=== PATIENT | male | born 1995 | race Caucasian/White ===

== ENCOUNTER 2018-06-04 08:11 | Emergency (ER) | END 2018-06-04 11:32 | disposition home or self-care (01) ==

== ENCOUNTER 2018-06-13 18:25 | Emergency (ER) | END 2018-06-13 23:57 | disposition home or self-care (01) ==

== ENCOUNTER 2018-06-20 06:40 | Emergency (ER) | END 2018-06-20 11:01 | disposition home or self-care (01) ==

== ENCOUNTER 2018-06-25 20:11 | Emergency (ER) | END 2018-06-26 03:40 | disposition home or self-care (01) ==

== ENCOUNTER 2018-06-29 15:55 | Emergency (ER) | END 2018-06-29 17:30 | disposition home or self-care (01) ==

== ENCOUNTER 2018-07-04 17:56 | Emergency (ER) | END 2018-07-05 00:23 | disposition home or self-care (01) ==

== ENCOUNTER 2018-07-05 07:00 | Emergency (ER) | END 2018-07-05 10:34 | disposition home or self-care (01) ==

== ENCOUNTER 2018-07-13 23:15 | Emergency (ER) | END 2018-07-13 23:30 | disposition left against medical advice (07) ==

== ENCOUNTER 2018-07-15 06:41 | Emergency (ER) | END 2018-07-15 10:46 | disposition home or self-care (01) ==

== ENCOUNTER 2018-07-18 17:26 | Emergency (ER) | END 2018-07-18 19:20 | disposition home or self-care (01) ==

== ENCOUNTER 2018-08-04 17:20 | Emergency (ER) | END 2018-08-04 23:32 | disposition left against medical advice (07) ==

== ENCOUNTER 2018-08-25 09:51 | Emergency (ER) | END 2018-08-25 10:40 | disposition home or self-care (01) ==

== ENCOUNTER 2018-08-29 14:00 | Emergency (ER) | END 2018-08-29 17:20 | disposition home or self-care (01) ==

== ENCOUNTER 2018-09-29 09:18 | Emergency (ER) | END 2018-09-29 11:41 | disposition left against medical advice (07) ==

== ENCOUNTER 2018-12-27 18:39 | Emergency (ER) | payer MEDICAID ==
[~2018-12-27] VITALS: Ht 172.7 cm; Wt 65.7 kg
[~2018-12-27 18:39] MED LIST: ALPR0.5T PO; AZIT250T PO; CHLO25CA9 PO
[2018-12-27 18:50] VITALS: Ht 172.7 cm; Wt 65.7 kg
[2018-12-27] MEDS ORDERED: DOCU-144 PO (21:49)
[2018-12-27] MEDS ORDERED: HYDR30CR75 PR (21:50)
[2018-12-27 21:55] VITALS: BP 117/80; PULSE 62; RESP 14
--- NOTE | 2018-12-27 21:59 | ERD ---
ER Documentation Chief Complaint Chief Complaint blood in urine x 5 days; denies any pain on urination and abd HPI Patient is a 23-year-old male with a past medical history of alcohol abuse, who presents the ER for concerns of blood in his stools for the last 5 days. Please note inconsistency with triage note. Patient states blood is in his stools, not in his urine. Patient states when wiping he noticed his blood. Patient also states his noted specks of blood in his stools. Patient does admit to straining. Patient states his stools are often hard. Patient denies any fevers, chills, nausea, vomiting or abdominal pain. Patient denies any recent travel. Patient denies any recent antibiotic use. Patient states the last time he drank was 2 weeks ago. ROS All systems reviewed and are negative except as per history of present illness. Medications Home Meds Active Scripts Hydrocortisone Acetate* (Anusol-HC*) 30 Gm Cream.gm., 1 APPLIC IN BID, #1 TUB Prov:INGRID SCHNEIDER PA-C 12/27/18 Docusate Sodium* (Colace*) 100 Mg Capsule, 100 MG PO BID, #15 CAP Prov:INGRID SCHNEIDER PA-C 12/27/18 Chlordiazepoxide* (Chlordiazepoxide*) 25 Mg Capsule, 25 MG PO Q8 PRN for ANXIETY, #10 CAP Prov:ALEX MARSHALL MD 08/29/18 Chlordiazepoxide* (Chlordiazepoxide*) 25 Mg Capsule, 25 MG PO Q8 PRN for ANXIETY, #10 CAP Prov:WENDY WEAVER DO 07/18/18 Azithromycin* (Zithromax*) 250 Mg Tablet, 250 MG PO .AmarilisPACK DIRECTED, #6 TAB TAKE 500 MG (2 TABS) THE FIRST DAY THEN 250 MG (1 TAB) DAYS 2-5 Prov:WENDY WEAVER DO 07/18/18 Alprazolam* (Xanax*) 0.5 Mg Tab, 0.5 MG PO Q8H PRN for ANXIETY, #20 TAB Prov:TERESA WEAVERSTKATHRYNS Kevin DO 07/05/18 Allergies Allergies: Coded Allergies: No Known Allergy (Unverified , 07/18/18) PMhx/Soc Medical and Surgical Hx: pt denies Medical Hx, pt denies Surgical Hx History of Surgery: No Anesthesia Reaction: No Hx Neurological Disorder: No Hx Respiratory Disorders: No Hx Cardiac Disorders: No Hx Psychiatric Problems: No Hx Miscellaneous Medical Probl: Yes (ETOH ABUSE ) Hx Alcohol Use: Yes (binge drinker) Hx Substance Use: Yes (METH , MARIJUANA) Hx Tobacco Use: No Smoking Status: Never smoker FmHx Family History: No diabetes Physical Exam Vitals Vital Signs Date Temp Pulse Resp B/P (MAP) Pulse Ox O2 O2 Flow FiO2 Time Delivery Rate 12/27/18 98.4 79 16 140/82 99 18:50 (101) Physical Exam GENERAL: Well-developed, well-nourished female. Appears in no acute distress. HEAD: Normocephalic, atraumatic. EYES: Pupils are equally reactive bilaterally. EOMs grossly intact. No conjunctival erythema. ENT: Moist mucous membranes. No uvula deviation. No kissing tonsils. NECK: Supple. No meningismus. Normal range of motion of the neck. LUNG: Clear to auscultation bilaterally. No rhonchi, wheezing, rales or coarse breath sounds. HEART: Regular rate and rhythm. No murmurs, rubs or gallops. ABDOMEN: Soft, nontender, and nondistended. Positive bowel sounds in all four quadrants. No rebound tenderness, no guarding. (-) McBurney's point tenderness. No CVA tenderness. RECTAL: chrome tanner Arnold present during this portion of the exam. External skin tag noted. Anus is nontender to palpation. No surrounding erythema or warmth. No active bleeding or discharge. Normal anal sphincter tone. No gross blood noted on glove after rectal exam. EXTREMITIES: Equal pulses bilaterally. No peripheral clubbing, cyanosis or edema. No unilateral leg swelling. NEUROLOGIC: Alert and oriented. Moving all four extremities without any difficulty. Normal speech. Steady gait. SKIN: Normal color. Warm and dry. No rashes or lesions. Result Diagram: 12/27/18204912/27/182049 Results 24 hrs Laboratory Tests Test 12/27/18 20:25 12/27/18 20:50 Stool Occult Blood NEGATIVE White Blood Count 8.0 10^3/ul Red Blood Count 4.84 10^6/ul Hemoglobin 14.9 g/dl Hematocrit 42.4 % Mean Corpuscular Volume 87.6 fl Mean Corpuscular Hemoglobin 30.8 pg Mean Corpuscular Hemoglobin Concent 35.1 g/dl Red Cell Distribution Width 12.3 % Platelet Count 218 10^3/UL Mean Platelet Volume 8.6 fl Immature Granulocytes % 0.300 % Neutrophils % 60.7 % Lymphocytes % 27.9 % Monocytes % 7.6 % Eosinophils % 2.6 % Basophils % 0.9 % Nucleated Red Blood Cells % 0.0 /100WBC Immature Granulocytes # 0.020 10^3/ul Neutrophils # 4.9 10^3/ul Lymphocytes # 2.2 10^3/ul Monocytes # 0.6 10^3/ul Eosinophils # 0.2 10^3/ul Basophils # 0.1 10^3/ul Nucleated Red Blood Cells # 0.0 10^3/ul Sodium Level 141 mmol/L Potassium Level 4.0 mmol/L Chloride Level 100 mmol/L Carbon Dioxide Level 29 mmol/L Anion Gap 12 Blood Urea Nitrogen 9 mg/dl Creatinine 0.76 mg/dl Est Glomerular Filtrat Rate mL/min > 60 mL/min Glucose Level 92 mg/dl Calcium Level 9.5 mg/dl Total Bilirubin 0.3 mg/dl Direct Bilirubin 0.00 mg/dl Indirect Bilirubin 0.3 mg/dl Aspartate Amino Transf (AST/SGOT) 43 IU/L Alanine Aminotransferase (ALT/SGPT) 28 IU/L Alkaline Phosphatase 92 IU/L Total Protein 7.9 g/dl Albumin 4.6 g/dl Globulin 3.30 g/dl Albumin/Globulin Ratio 1.39 Lipase 61 U/L Procedures/MDM ED COURSE: The patient was stable throughout ED course. I kept the patient and/or family informed of laboratory and diagnostic imaging results throughout the ED course. MEDICAL DECISION MAKING: This is a 23-year-old male who presents the ER for concerns of rectal bleeding for the last 5 days. Patient reports specks of blood in his stool and specks of blood on wiping. Patient does admit to straining and hard stools. Patient denies any fevers or abdominal pain.. Vital signs were reviewed. Patient is afebrile. Rectal exam did reveal external hemorrhoids. No active bleeding. Blood work was obtained. CBC showed no evidence of systemic infection or severe anemia. CMP showed no evidence of electrolyte abnormalities, severe acidosis, alkalosis, renal failure, or liver disease. Occult blood test was negative. Based on physical exam findings, I do feel the patient has hemorrhoids which is contributing to his rectal bleeding. Patient was advised to avoid straining. Patient advised to increase fiber intake and H2O intake. Patient was advised to follow-up with a GI specialist on outpatient basis. Unable to rule out any internal hemorrhoids versus IBD versus malignancy at this time. Patient's H&H is within normal limits. Patient is hemodynamically stable. I do not feel that patient requires admission at this time. Patient was nontoxic, xim-hav-decurvoil prior to discharge. Differential diagnoses include but was not limited to acute coronary syndrome, AAA, mesenteric ischemia, lower lobe pneumonia, DKA, bowel perforation, cholecystitis, choledocholithiasis, ascending cholangitis, hepatic abscess, pa creatitis, PUD, gastritis, GERD, splenic rupture, diverticulitis, appendicitis. PRESCRIPTIONS: Colace, Anusol HC DISCHARGE: At this time, patient is stable for discharge and outpatient management. I have instructed the patient to follow-up with his/her primary care physician in 1-2 days. I have instructed the patient to promptly return to the ER at any time for any new or worsening symptoms including increased pain, nausea, vomiting, diarrhea, fever, weakness or LOC. The patient and/or family expressed understanding of and agreement with this plan. All questions were answered. Home care instructions were provided. Disclaimer: Inadvertent spelling and grammatical errors are likely due to EHR/dictation software use and do not reflect on the overall quality of patient care. Also, please note that the electronic time recorded on this note does not necessarily reflect the actual time of the patient encounter. Departure Diagnosis: Primary Impression: Hemorrhoids Hemorrhoid type: unspecified Qualified Codes: K64.9 - Unspecified hemorrhoids Additional Impression: Rectal bleeding Condition: Fair Patient Instructions: Understanding Hemorrhoids, Rectal Bleed, Stable Referrals: ISIDORO BROWNE MD,LAURA MURPHY,AZAM ULLOA,YAMILET RAMÍREZ,MICHELA LUIS,DWAYNE Chopra MD [facility] () Usted se gamboa hecho un examen mdico de control que le indica que no est en antonio condicin que requiera tratamiento urgente en el Departamento de Emergencia. Un estudio ms profundo y el tratamiento de [place] condicin pueden esperar sin ningn riesgo hasta que usted sea atendida/o en el consultorio de [place] mdico o antonio clnica. Es responsabilidad suya arreglar antonio bre para el seguimiento del claudia. MANEJO DE CONDICIONES NO URGENTES EN EL FUTURO 1) Si usted tiene un mdico de atencin primaria: Usted debera llamar a [place] mdico de atencin primaria antes de venir al d epartamento de emergencia. Despus de las horas de consultorio, [place] doctor o [place] asociado/a est disponible por telfono. El mdico o enfermero de amanda en el servicio telefnico puede asesorarle por izaiah medio para atender el problema, o claudia contrario se puede programar antonio bre. 2) Si usted no tiene un mdico de atencin primaria: Llame al mdico o clnica de referencia que aparece abajo tea las horas de consultorio para hacer antonio bre para que le vean. CLINICAS: [facility] [phone] [address] [facility] [phone] [address] [facility]. [facility] [phone] [address] [facility]. [facility] [phone] [facility]. [place] [phone] [address] [facility]. [phone] [facility] () Usted se gamboa hecho un examen mdico de control que le indica que no est en antonio condicin que requiera tratamiento urgente en el Departamento de Emergencia. Un estudio ms profundo y el tratamiento de [place] condicin pueden esperar sin ningn riesgo hasta que usted sea atendida/o en el consultorio de [place] mdico o antonio clnica. Es responsabilidad suya arreglar antonio bre para el seguimiento del claudia. MANEJO DE CONDICIONES NO URGENTES EN EL FUTURO 1) Si usted tiene un mdico de atencin primaria: Usted debera llamar a [place] mdico de atencin primaria antes de venir al departamento de emergencia. Despus de las horas de consultorio, [place] doctor o [place] asociado/a est disponible por telfono. El mdico o enfermero de amanda en el servicio telefnico puede asesorarle por izaiah medio para atender el problema, o claudia contrario se puede programar antonio bre. 2) Si usted no tiene un mdico de atencin primaria: Llame al mdico o condado institucions de referencia que aparece abajo tea las horas de consultorio para hacer antonio bre para que le vean. SI USTED NO PUEDE PAGAR PARA JAMES UN MEDICO puede ir a: [facility] [address] [place] [address] [facility] [address] [place] [address] [facility] [address] [place] [address] [facility] [address] [place], [place] [id number] Additional Instructions: Llame al doctor/ doctor de gastroenterologia MAANA y melva antonio BRE PARA DENTRO DE 1-2 OLIVER.Dgale a la secretaria que nosotros le instruimos hacer esta bre.Avise o llame si [place] condicin se empeora antes de la bre. Regresa aqui si peor o no mejor. INGRID SCHNEIDER PA-C Dec 27, 2018 21:59
== END 2018-12-27 21:58 | disposition home or self-care (01) ==
LOC: FTE 18:39
DX: K64.9 Unspecified hemorrhoids (principal); K62.5 Hemorrhage of anus and rectum
CPT/HCPCS: 36415; 80053; 82270; 83690; 85025; Z7502; 99284

== ENCOUNTER 2019-04-26 09:24 | Emergency (ER) | payer MEDICAID ==
[~2019-04-26] VITALS: Wt 78.0 kg
[~2019-04-26 09:24] MED LIST changes: +DOCU-144 PO; +HYDR30CR75 PR
[2019-04-26 09:31] VITALS: BP 140/67; PULSE 119; RESP 18
[2019-04-26] MEDS ORDERED: LORAZEPAM 1 MG TAB PO ONE (11:00)
--- NOTE | 2019-04-26 11:01 | ERD ---
ER Documentation Chief Complaint Chief Complaint ANXIETY HPI 23-year-old male, with a history heavy alcohol intake, presents to the emergency department, complaining of anxiety after drinking alcohol overnight. The patient denies chest pain, no dizziness, no distal weakness, numbness or tingling. ROS All systems reviewed and are negative except as per history of present illness. Medications Home Meds Active Scripts Lorazepam* (Lorazepam*) 1 Mg Tablet, 1 MG PO Q8H PRN for ANXIETY, #10 TAB Prov:ALEX MARSHALL MD 04/26/19 Hydrocortisone Acetate* (Anusol-HC*) 30 Gm Cream.gm., 1 APPLIC WI BID, #1 TUB Prov:INGRID SCHNEIDER PA-C 12/27/18 Docusate Sodium* (Colace*) 100 Mg Capsule, 100 MG PO BID, #15 CAP Prov:INGRID SCHNEIDER PA-C 12/27/18 Chlordiazepoxide* (Chlordiazepoxide*) 25 Mg Capsule, 25 MG PO Q8 PRN for ANXIETY, #10 CAP Prov:ALEX MARSHALL MD 08/29/18 Chlordiazepoxide* (Chlordiazepoxide*) 25 Mg Capsule, 25 MG PO Q8 PRN for ANXIETY, #10 CAP Prov:WENDY WEAVER DO 07/18/18 Azithromycin* (Zithromax*) 250 Mg Tablet, 250 MG PO .ZPACK DIRECTED, #6 TAB TAKE 500 MG (2 TABS) THE FIRST DAY THEN 250 MG (1 TAB) DAYS 2-5 Prov:TERESA WEAVERSTISIS Brown DO 07/18/18 Alprazolam* (Xanax*) 0.5 Mg Tab, 0.5 MG PO Q8H PRN for ANXIETY, #20 TAB Prov:TERESA WEAVERSTOLOS AJae DO 07/05/18 Allergies Allergies: Coded Allergies: No Known Allergy (Unverified , 07/18/18) PMhx/Soc History of Surgery: No Anesthesia Reaction: No Hx Neurological Disorder: No Hx Respiratory Disorders: No Hx Cardiac Disorders: No Hx Psychiatric Problems: No Hx Miscellaneous Medical Probl: Yes (ETOH ABUSE ) Hx Alcohol Use: Yes (binge drinker) Hx Substance Use: Yes (METH , MARIJUANA) Hx Tobacco Use: No FmHx Family History: No diabetes, No coronary disease Physical Exam Vitals Vital Signs Date Temp Pulse Resp B/P (MAP) Pulse Ox O2 O2 Flow FiO2 Time Delivery Rate 04/26/19 98.1 119 18 140/67 99 09:31 (91) Physical Exam Const: Seems anxious, vital signs stable except for mild tachycardia. Head: Atraumatic Eyes: Normal Conjunctiva ENT: Normal External Ears, Nose and Mouth. Neck: Full range of motion. No meningismus. Resp: Clear to auscultation bilaterally Cardio: Regular rate and rhythm, no murmurs Abd: Soft, non tender, non distended. Normal bowel sounds Skin: No petechiae or rashes Back: No midline or flank tenderness Ext: No cyanosis, or edema Neur: Awake and alert Psych: Normal Mood and Affect Results 24 hrs Current Medications Medications Dose Sig/Herlinda Start Time Status Last (Trade) Ordered Route PRN Stop Time Admin Dose Reason Admin Lorazepam 1 mg ONCE ONCE 04/26/19 DC 04/26/19 (Ativan) PO 11:00 11:11 04/26/19 11:06 Procedures/MDM Differential diagnosis include anxiety, alcohol withdrawal, dehydration, EtOH intoxication, ETOH hallucinosis, withdrawal seizures low suspicion for delirium tremens. Score <10: Very mild withdrawal. the patient is a stable to be discharged with a prescription for lorazepam # 10 tab. And follow-up with a primary care provider in 24 hours. The patient was instructed to return immediately to the emergency department for worsening of the withdrawal , any signs of hallucinations, seizures, tachycardia. Instructions explained and given directly by me with acknowledgment and demonstrated understanding. Disclaimer: Inadvertent spelling and grammatical errors are likely due to EHR/dictation software use and do not reflect on the overall quality of patient care. Also, please note that the electronic time recorded on this note does not necessarily reflect the actual time of the patient encounter. Departure Diagnosis: Primary Impression: Anxiety Condition: Stable Additional Instructions: Muchas jacob por [facility] para [place] servicio. Esperamos que en [place] visita a la delvin de emergencia [place] problema medico haya sido solucionado y que se sienta mucho mejor. Para estar seguros que [place] mejoria sigue en proceso, le pedimos el favor de hacer antonio douglas de seguimiento medico con [place] doctor primario en los proximos 2-4 chavez. Lleve con usted estos documentos y las medicinas recetadas. Si kat sintomas empeoran, NO SE ESPERE, por favor regrese a delvin de emergencia INMEDIATAMENTE. En claudia que usted no tenga un mdico de atencin primaria: Llame al mdico o clnica comunitaria de referencia que aparece abajo tea las horas de consultorio para hacer antonio douglas para que le vean. CLINICAS: [facility] [phone] [address] [facility] [phone] [address] [facility] [phone] [facility] [phone] [address] [place] [phone] [facility]. [phone] ALEX SIFUENTES MD April 26, 2019 11:01
[2019-04-26] MEDS ORDERED: LORA1TAB PO (11:31)
== END 2019-04-26 11:38 | disposition home or self-care (01) ==
LOC: FTE 09:24
DX: F41.9 Anxiety disorder, unspecified (principal)
CPT/HCPCS: Z7502; Z7610; 99283

== ENCOUNTER 2019-05-25 08:30 | Emergency (ER) | payer MEDICAID ==
[~2019-05-25] VITALS: Ht 160 cm; Wt 71.0 kg
[~2019-05-25 08:30] MED LIST changes: +LORA1TAB PO
[2019-05-25 08:34] VITALS: BP 132/93; PULSE 99; RESP 18; Ht 160 cm; Wt 71.0 kg
--- NOTE | 2019-05-25 13:19 | ERD ---
ER Documentation Chief Complaint Chief Complaint etoh intoxication HPI Patient is a 23-year-old male with a history of alcohol abuse who presents with saying that he feels bad. He said that he has been drinking for the past 3 days. He says "I feel bad". He has anxiety. Upon review of old medical records the patient has multiple visits to the ER since 2018. Review of the emergency department information exchange system shows visits to 3 separate emergency departments for a total of 21 visits over the past 1 year. ROS All systems reviewed and are negative except as per history of present illness. Medications Home Meds Active Scripts Lorazepam* (Lorazepam*) 1 Mg Tablet, 1 MG PO Q8H PRN for ANXIETY, #10 TAB Prov:ALEX MARSHALL MD 04/26/19 Hydrocortisone Acetate* (Anusol-HC*) 30 Gm Cream.gm., 1 APPLIC UT BID, #1 TUB Prov:INGRID SCHNEIDER PA-C 12/27/18 Docusate Sodium* (Colace*) 100 Mg Capsule, 100 MG PO BID, #15 CAP Prov:INGRID SCHNEIDER PA-C 12/27/18 Chlordiazepoxide* (Chlordiazepoxide*) 25 Mg Capsule, 25 MG PO Q8 PRN for ANXIETY, #10 CAP Prov:ALEX MARSHALL MD 08/29/18 Chlordiazepoxide* (Chlordiazepoxide*) 25 Mg Capsule, 25 MG PO Q8 PRN for ANXIETY, #10 CAP Prov:LESENDYOSTERESASTOLOS A. DO 07/18/18 Azithromycin* (Zithromax*) 250 Mg Tablet, 250 MG PO .DANTECK DIRECTED, #6 TAB TAKE 500 MG (2 TABS) THE FIRST DAY THEN 250 MG (1 TAB) DAYS 2-5 Prov:LESENDYOSTERESASTOLOS A. DO 07/18/18 Alprazolam* (Xanax*) 0.5 Mg Tab, 0.5 MG PO Q8H PRN for ANXIETY, #20 TAB Prov:LEKKOS,APOSTOLOS A. DO 07/05/18 Allergies Allergies: Coded Allergies: No Known Allergy (Unverified , 07/18/18) PMhx/Soc History of Surgery: No Anesthesia Reaction: No Hx Neurological Disorder: No Hx Respiratory Disorders: No Hx Cardiac Disorders: No Hx Psychiatric Problems: No Hx Miscellaneous Medical Probl: Yes (ETOH ABUSE ) Hx Alcohol Use: Yes (binge drinker) Hx Substance Use: Yes (METH , MARIJUANA) Hx Tobacco Use: No FmHx Family History: No diabetes Physical Exam Vitals Vital Signs Date Temp Pulse Resp B/P (MAP) Pulse Ox O2 O2 Flow FiO2 Time Delivery Rate 05/25/19 98.1 99 18 132/93 99 08:34 (106) Physical Exam Const: No acute distress Head: Atraumatic Eyes: Normal Conjunctiva ENT: Normal External Ears, Nose and Mouth. Neck: Full range of motion. No meningismus. Resp: Clear to auscultation bilaterally Cardio: Regular rate and rhythm, no murmurs Abd: Soft, non tender, non distended. Normal bowel sounds Skin: No petechiae or rashes Back: No midline or flank tenderness Ext: No cyanosis, or edema Neur: Awake and alert Psych: Anxious Procedures/MDM Patient is a 23-year-old male who presents with what appears to be acute alcohol withdrawal. He appears anxious. He says "I feel bad". I doubt delirium tremens at this time. His vital signs are normal. He has no hallucinations. H e will be discharged and will be given information for the local detox facilities. I told him that we do not do inpatient detox here at [facility]. The patient can return for any worsening symptoms. He does not require further work-up or admission in the hospital at this time. Departure Diagnosis: Primary Impression: Alcohol withdrawal Complication of substance-induced condition: uncomplicated Qualified Codes: F10.230 - Alcohol dependence with withdrawal, uncomplicated Condition: Stable Patient Instructions: Alcohol Withdrawal [facility]errals: [facility] Usted se gamboa hecho un examen mdico de control que le indica que no est en antonio condicin que requiera tratamiento urgente en el Departamento de Emergencia. Un estudio ms profundo y el tratamiento de [place] condicin pueden esperar sin ningn riesgo hasta que usted sea atendida/o en el consultorio de [place] mdico o antonio clnica. Es responsabilidad suya arreglar antonio bre para el seguimiento del claudia. MANEJO DE CONDICIONES NO URGENTES EN EL FUTURO 1) Si usted tiene un mdico de atencin primaria: Usted debera llamar a [place] mdico de atencin primaria antes de venir al departamento de emergencia. Despus de las horas de consultorio, [place] doctor o [place] asociado/a est disponible por telfono. El mdico o enfermero de amanda en el servicio telefnico puede asesorarle por izaiah medio para atender el problema, o claudia contrario se puede programar antonio bre. 2) Si usted no tiene un mdico de atencin primaria: Llame al mdico o clnica de referencia que aparece abajo tea las horas de consultorio para hacer antonio bre para que le vean. CLINICAS: [facility] [phone] [address] [facility] [phone] [facility] [phone] [address] [facility] [phone] [address] [facility]. [place] [phone] [address] [facility] [phone] [address] Additional Instructions: Llame al doctor MAANA y melva antonio BRE PARA DENTRO DE 1-2 OLIVER.Dgale a la secretaria que nosotros le instruimos hacer esta bre.Avise o llame si [place] condicin se empeora antes de la bre. Regresa aqui si peor o no mejor. YAJAIRA WAN MD May 25, 2019 13:19
== END 2019-05-25 09:16 | disposition home or self-care (01) ==
LOC: E/R 08:30
DX: F10.230 Alcohol dependence with withdrawal, uncomplicated (principal)
CPT/HCPCS: 99282